=== PATIENT | female | born 1935 | race Caucasian/White ===

== ENCOUNTER 2018-03-19 14:13 | Inpatient (IN) ==
[2018-03-19 16:04] LABS: Basophils # 0.1 10*3/uL (0.0-0.2); Basophils % 0.7 % (0.0-0.8); Eosinophils # 0.2 10*3/uL (0.0-0.87); Eosinophils % 2.9 % (0.00-10.9); Hematocrit 36.1 VOL% (35.7-47.0); Hemoglobin 11.8 GM/DL (12.0-16.0); Immature Granulocytes % 0.2 %; Immature Granulocytes Absolute 0.02 #; Lymphocytes # 2.5 10*3/uL (1.4-4.0); Lymphocytes % 30.5 % (21.3-54.2); Mean Corpuscular HGB Conc 32.7 GM/DL (32-36); Mean Corpuscular Hemoglobin 30 PG (27-34); Mean Platelet Volume 10.7 FL (9.6-12.0); Monocytes # 0.8 10*3/uL (0.11-0.8); Monocytes % 9.8 % (1.7-12.7); Neutrophils # 4.6 10*3/uL (1.4-7.4); Neutrophils % 55.9 % (38.7-73.9); Platelet Count 189 T/CUMM (130-400); Red Blood Count 3.88 MC/CUMM (3.8-5.5); Red Cell Distribution Width 12.9 % (9.3-17.3); White Blood Count 8.2 T/CUMM (4-12)
[2018-03-19 16:47] LABS: Apearance,Urine CLEAR (Clear); Bilirubin,Urine Negative (Negative); Blood, Urine Negative (Negative); Glucose,Urine (UA) Negative (Negative); Ketones,Urine Negative (Negative); Mucus,Urine Occasional /LPF (Occasional); Nitrite,Urine Negative (Negative); Protein,Urine Negative; RBC,Urine <1 /HPF (0-4); Urine Color Yellow (Yellow); Urine Urobilinogen < 2.0 EU/DL (0.2-1.0)
[2018-03-19 17:00] LABS: Alanine Aminotransferase 24 U/L (13-56); Albumin 3.8 G/DL (3.4-5.0); Alkaline Phosphatase 67 U/L (45-117); Aspartate Amino Transferase 26 U/L (0-37); Bilirubin,Total < 0.39 MG/DL (0.2-1.0); Blood Urea Nitrogen 20 MG/DL (7-18); Calcium 8.7 MG/DL (8.5-10.1); Glucose 99 MG/DL (74-106); Osmolality,Calculated 281.4 MOS/KG (273-304); Sodium 140 MMOL/L (136-145); Total Protein 7.2 G/DL (6.4-8.3)
[2018-03-19] MEDS ORDERED: ACETAMINOPHEN 325 MG TABLET PO PRN (17:55)
[2018-03-19 18:26] LABS: Ammonia 10 UMOL/L (11-32)
[2018-03-19] MEDS ORDERED: MEROPENEM 1,000 MG VIAL IV ONE (18:57)
[2018-03-19] MEDS: MEROPENEM 1,000 MG in SODIUM CHLORIDE 0.9% 100 ML IV SCH (19:00)
[2018-03-19] MEDS: ATORVASTATIN 40 MG TABLET PO SCH (20:07)
[2018-03-19] MEDS ORDERED: LEVOFLOXACIN INJ 500 MG in PREMIX 1 EACH IV ONE (21:00)
[2018-03-19] MEDS: HEPARIN 5,000 UNIT/1 ML VIAL SUBCUT SCH (21:24)
[2018-03-19] MEDS: MULTIVITAMIN (OCUVITE) TABLET PO SCH (21:29)
[2018-03-19] MEDS: METHENAMINE HIPPURATE 1 GM TABLET PO SCH (21:29)
[2018-03-19] MEDS: ASCORBIC ACID 500 MG TABLET PO SCH (21:29)
[2018-03-20 05:29] LABS: Basophils # 0.1 10*3/uL (0.0-0.2); Basophils % 0.7 % (0.0-0.8); Eosinophils # 0.2 10*3/uL (0.0-0.87); Eosinophils % 3.2 % (0.00-10.9); Hematocrit 34.1 VOL% (35.7-47.0); Hemoglobin 11.1 GM/DL (12.0-16.0); Immature Granulocytes % 0.3 %; Immature Granulocytes Absolute 0.02 #; Lymphocytes # 1.7 10*3/uL (1.4-4.0); Lymphocytes % 24.5 % (21.3-54.2); Mean Corpuscular HGB Conc 32.6 GM/DL (32-36); Mean Corpuscular Hemoglobin 31 PG (27-34); Mean Corpuscular Volume 93.7 FL (87-102); Mean Platelet Volume 10.6 FL (9.6-12.0); Monocytes # 0.5 10*3/uL (0.11-0.8); Monocytes % 7.6 % (1.7-12.7); Neutrophils # 4.4 10*3/uL (1.4-7.4); Neutrophils % 63.7 % (38.7-73.9); Platelet Count 194 T/CUMM (130-400); Red Blood Count 3.64 MC/CUMM (3.8-5.5); Red Cell Distribution Width 12.9 % (9.3-17.3)
[2018-03-20 05:59] LABS: Albumin 3.2 G/DL (3.4-5.0); Bilirubin,Total 0.8 MG/DL (0.2-1.0); Calcium 8.2 MG/DL (8.5-10.1); Osmolality,Calculated 283.1 MOS/KG (273-304); Potassium 4.1 MMOL/L (3.5-5.1); Total Protein 6.3 G/DL (6.4-8.3)
[2018-03-20] MEDS: HEPARIN 5,000 UNIT/1 ML VIAL SUBCUT SCH ×3 (06:52→21:29)
[2018-03-20] MEDS: MEROPENEM 1,000 MG in SODIUM CHLORIDE 0.9% 100 ML IV SCH (06:52)
[2018-03-20] MEDS: METHENAMINE HIPPURATE 1 GM TABLET PO SCH ×2 (09:03→21:22)
[2018-03-20] MEDS: ASCORBIC ACID 500 MG TABLET PO SCH ×2 (09:04→21:22)
[2018-03-20] MEDS: ASPIRIN EC 81 MG TABLET PO SCH (09:06)
[2018-03-20] MEDS: CHOLECALCIFEROL 1,000 UNIT TABLET PO SCH (09:06)
[2018-03-20] MEDS: amLODIPine 10 MG TABLET PO SCH (09:06)
[2018-03-20] MEDS: PANTOPRAZOLE 40 MG TABLET PO SCH (09:06)
[2018-03-20] MEDS: RAMIPRIL 5 MG CAPSULE PO SCH (09:06)
[2018-03-20] MEDS: PIPERACILLIN/TAZOBACTAM 3,375 MG in SODIUM CHLORIDE 0.9% 100 ML IV SCH ×2 (10:36→18:12)
[2018-03-20] MEDS ORDERED: LEVOFLOXACIN INJ 250 MG in PREMIX 1 EACH IV SCH (21:00)
[2018-03-20] MEDS: MULTIVITAMIN (OCUVITE) TABLET PO SCH (21:22)
[2018-03-20] MEDS: ATORVASTATIN 40 MG TABLET PO SCH (21:22)
[2018-03-20] MEDS: QUEtiapine 25 MG TABLET PO SCH (21:23)
[2018-03-20] MEDS: DONEPEZIL 5 MG TABLET PO SCH (21:24)
[2018-03-21] MEDS: PIPERACILLIN/TAZOBACTAM 3,375 MG in SODIUM CHLORIDE 0.9% 100 ML IV SCH (01:59)
[2018-03-21 04:38] LABS: Basophils % 0.6 % (0.0-0.8); Eosinophils # 0.3 10*3/uL (0.0-0.87); Eosinophils % 4.4 % (0.00-10.9); Hematocrit 34.2 VOL% (35.7-47.0); Hemoglobin 11.2 GM/DL (12.0-16.0); Immature Granulocytes % 0.1 %; Immature Granulocytes Absolute 0.01 #; Lymphocytes # 2.6 10*3/uL (1.4-4.0); Lymphocytes % 37.7 % (21.3-54.2); Mean Corpuscular HGB Conc 32.7 GM/DL (32-36); Mean Corpuscular Hemoglobin 31 PG (27-34); Mean Corpuscular Volume 94.2 FL (87-102); Mean Platelet Volume 10.1 FL (9.6-12.0); Monocytes # 0.5 10*3/uL (0.11-0.8); Monocytes % 7.1 % (1.7-12.7); Neutrophils # 3.4 10*3/uL (1.4-7.4); Neutrophils % 50.1 % (38.7-73.9); Platelet Count 196 T/CUMM (130-400); Red Blood Count 3.63 MC/CUMM (3.8-5.5); Red Cell Distribution Width 12.9 % (9.3-17.3); White Blood Count 6.8 T/CUMM (4-12)
[2018-03-21 05:30] LABS: Albumin 3.1 G/DL (3.4-5.0); Bilirubin,Total 0.5 MG/DL (0.2-1.0); Calcium 8.7 MG/DL (8.5-10.1); Osmolality,Calculated 285.1 MOS/KG (273-304); Potassium 4.1 MMOL/L (3.5-5.1); Total Protein 6.2 G/DL (6.4-8.3)
[2018-03-21] MEDS: HEPARIN 5,000 UNIT/1 ML VIAL SUBCUT SCH ×3 (05:43→21:32)
[2018-03-21] MEDS: RAMIPRIL 5 MG CAPSULE PO SCH (09:28)
[2018-03-21] MEDS: ASCORBIC ACID 500 MG TABLET PO SCH ×2 (09:28→20:23)
[2018-03-21] MEDS: CHOLECALCIFEROL 1,000 UNIT TABLET PO SCH (09:28)
[2018-03-21] MEDS: METHENAMINE HIPPURATE 1 GM TABLET PO SCH ×2 (09:28→20:24)
[2018-03-21] MEDS: QUEtiapine 25 MG TABLET PO SCH ×2 (09:28→23:58)
[2018-03-21] MEDS: amLODIPine 10 MG TABLET PO SCH (09:28)
[2018-03-21] MEDS: PANTOPRAZOLE 40 MG TABLET PO SCH (09:28)
[2018-03-21] MEDS: ASPIRIN EC 81 MG TABLET PO SCH (09:28)
[2018-03-21] MEDS ORDERED: VANCOMYCIN INJ 1,500 MG in SODIUM CHLORIDE 0.9% 500 ML IV ONE (13:00)
[2018-03-21 14:09] LABS: Troponin I < 0.015 NG/ML (0.00-0.045)
[2018-03-21] MEDS: MULTIVITAMIN (OCUVITE) TABLET PO SCH (20:23)
[2018-03-21] MEDS: ATORVASTATIN 40 MG TABLET PO SCH (20:24)
[2018-03-21] MEDS ORDERED: APIXABAN 2.5 MG TABLET PO SCH (21:00)
[2018-03-21] MEDS: DONEPEZIL 5 MG TABLET PO SCH (23:58)
[2018-03-22] MEDS: HEPARIN 5,000 UNIT/1 ML VIAL SUBCUT SCH ×3 (05:27→21:00)
[2018-03-22 05:42] LABS: Basophils # 0.1 10*3/uL (0.0-0.2); Basophils % 0.6 % (0.0-0.8); Eosinophils # 0.3 10*3/uL (0.0-0.87); Eosinophils % 3.4 % (0.00-10.9); Hematocrit 37.2 VOL% (35.7-47.0); Immature Granulocytes % 0.1 %; Immature Granulocytes Absolute 0.01 #; Lymphocytes # 2.4 10*3/uL (1.4-4.0); Lymphocytes % 31.1 % (21.3-54.2); Mean Corpuscular HGB Conc 32.3 GM/DL (32-36); Mean Corpuscular Hemoglobin 31 PG (27-34); Mean Corpuscular Volume 94.9 FL (87-102); Mean Platelet Volume 10.5 FL (9.6-12.0); Monocytes # 0.5 10*3/uL (0.11-0.8); Monocytes % 6.7 % (1.7-12.7); Neutrophils # 4.5 10*3/uL (1.4-7.4); Neutrophils % 58.1 % (38.7-73.9); Platelet Count 196 T/CUMM (130-400); Red Blood Count 3.92 MC/CUMM (3.8-5.5); Red Cell Distribution Width 12.8 % (9.3-17.3); White Blood Count 7.8 T/CUMM (4-12)
[2018-03-22 06:59] LABS: Calcium 8.9 MG/DL (8.5-10.1)
[2018-03-22 07:00] LABS: Osmolality,Calculated 283.1 MOS/KG (273-304); Potassium 4.1 MMOL/L (3.5-5.1)
[2018-03-22] MEDS: CHOLECALCIFEROL 1,000 UNIT TABLET PO SCH (09:42)
[2018-03-22] MEDS: METHENAMINE HIPPURATE 1 GM TABLET PO SCH ×2 (09:42→20:58)
[2018-03-22] MEDS: ASPIRIN EC 81 MG TABLET PO SCH (09:42)
[2018-03-22] MEDS: ASCORBIC ACID 500 MG TABLET PO SCH ×2 (09:42→20:58)
[2018-03-22] MEDS: PANTOPRAZOLE 40 MG TABLET PO SCH (09:42)
[2018-03-22] MEDS: RAMIPRIL 5 MG CAPSULE PO SCH (09:44)
[2018-03-22] MEDS: QUEtiapine 25 MG TABLET PO SCH (09:51)
[2018-03-22] MEDS ORDERED: VANCOMYCIN INJ 1,250 MG in SODIUM CHLORIDE 0.9% 250 ML IV SCH (13:00)
[2018-03-22] MEDS: cefTRIAXone 2,000 MG in SYRINGE 1 EACH IV SCH (13:42)
[2018-03-22] MEDS: MULTIVITAMIN (OCUVITE) TABLET PO SCH (20:58)
[2018-03-22] MEDS: ATORVASTATIN 40 MG TABLET PO SCH (20:58)
[2018-03-23] MEDS: HEPARIN 5,000 UNIT/1 ML VIAL SUBCUT SCH ×3 (05:38→20:40)
[2018-03-23 06:16] LABS: Basophils % 0.4 % (0.0-0.8); Eosinophils # 0.3 10*3/uL (0.0-0.87); Eosinophils % 3.7 % (0.00-10.9); Hematocrit 36.3 VOL% (35.7-47.0); Hemoglobin 11.5 GM/DL (12.0-16.0); Immature Granulocytes % 0.1 %; Immature Granulocytes Absolute 0.01 #; Lymphocytes # 2.1 10*3/uL (1.4-4.0); Lymphocytes % 28.1 % (21.3-54.2); Mean Corpuscular HGB Conc 31.7 GM/DL (32-36); Mean Corpuscular Hemoglobin 30 PG (27-34); Mean Platelet Volume 10.3 FL (9.6-12.0); Monocytes # 0.5 10*3/uL (0.11-0.8); Monocytes % 6.3 % (1.7-12.7); Neutrophils # 4.7 10*3/uL (1.4-7.4); Neutrophils % 61.4 % (38.7-73.9); Platelet Count 211 T/CUMM (130-400); Red Blood Count 3.86 MC/CUMM (3.8-5.5); Red Cell Distribution Width 12.8 % (9.3-17.3); White Blood Count 7.6 T/CUMM (4-12)
[2018-03-23 06:51] LABS: Calcium 8.9 MG/DL (8.5-10.1); Potassium 3.9 MMOL/L (3.5-5.1)
[2018-03-23] MEDS: CHOLECALCIFEROL 1,000 UNIT TABLET PO SCH (10:11)
[2018-03-23] MEDS: ASCORBIC ACID 500 MG TABLET PO SCH ×2 (10:12→20:40)
[2018-03-23] MEDS: METHENAMINE HIPPURATE 1 GM TABLET PO SCH ×2 (10:12→20:40)
[2018-03-23] MEDS: PANTOPRAZOLE 40 MG TABLET PO SCH (10:12)
[2018-03-23] MEDS: ASPIRIN EC 81 MG TABLET PO SCH (10:12)
[2018-03-23] MEDS: RAMIPRIL 5 MG CAPSULE PO SCH (10:12)
[2018-03-23] MEDS: cefTRIAXone 2,000 MG in SYRINGE 1 EACH IV SCH (10:12)
[2018-03-23] MEDS: ATORVASTATIN 40 MG TABLET PO SCH (20:40)
[2018-03-23] MEDS: MULTIVITAMIN (OCUVITE) TABLET PO SCH (20:40)
[2018-03-24] MEDS: HEPARIN 5,000 UNIT/1 ML VIAL SUBCUT SCH (05:36)
[2018-03-24] MEDS: RAMIPRIL 5 MG CAPSULE PO SCH (08:59)
[2018-03-24] MEDS: METHENAMINE HIPPURATE 1 GM TABLET PO SCH (09:00)
[2018-03-24] MEDS: CHOLECALCIFEROL 1,000 UNIT TABLET PO SCH (09:00)
[2018-03-24] MEDS: PANTOPRAZOLE 40 MG TABLET PO SCH (09:00)
[2018-03-24] MEDS: ASPIRIN EC 81 MG TABLET PO SCH (09:00)
[2018-03-24] MEDS ORDERED: APIXABAN 2.5 MG TABLET PO SCH (09:00)
[2018-03-24] MEDS: ASCORBIC ACID 500 MG TABLET PO SCH (09:00)
[2018-03-24] MEDS: cefTRIAXone 2,000 MG in SYRINGE 1 EACH IV SCH (09:31)
[2018-03-24 11:53] VITALS: BP 122/65
[2018-03-24] MEDS ORDERED: HEPARIN 5,000 UNIT/1 ML VIAL ONE (15:30)
[2018-03-24] MEDS ORDERED: FUROSEMIDE 20 MG/2 ML VIAL ONE (15:31)
== END 2018-03-24 13:27 | disposition swing bed (61) | DRG 871 ==
LOC: N.ED 14:13 → SUATTDRO 17:26 → N.EDINP 17:26 → N.5E 19:11 → N.2E 03-22 07:08
PROVIDERS: ADMIT Internal Medicine; ATTEND Family Medicine

== ENCOUNTER 2018-11-15 17:55 | Inpatient (IN) ==
[2018-11-15 20:05] LABS: Basophils % 0.5 % (0.0-0.8); Eosinophils # 0.2 10*3/uL (0.0-0.87); Eosinophils % 3.3 % (0.00-10.9); Hematocrit 37.2 VOL% (35.7-47.0); Hemoglobin 11.9 GM/DL (12.0-16.0); Immature Granulocytes % 0.3 %; Immature Granulocytes Absolute 0.02 #; Lymphocytes # 2.1 10*3/uL (1.4-4.0); Mean Corpuscular Volume 95.9 FL (87-102); Mean Platelet Volume 13.6 FL (9.6-12.0); Monocytes % 6.5 % (1.7-12.7); Neutrophils % 55.4 % (38.7-73.9); Red Blood Count 3.88 MC/CUMM (3.8-5.5); Red Cell Distribution Width 13.3 % (9.3-17.3); White Blood Count 6.1 T/CUMM (4-12)
[2018-11-15 20:12] LABS: Platelet Count 38 T/CUMM (130-400)
[2018-11-15 21:24] LABS: Basophils % 0.5 % (0.0-0.8); Eosinophils # 0.4 10*3/uL (0.0-0.87); Eosinophils % 4.1 % (0.00-10.9); Hematocrit 37.7 VOL% (35.7-47.0); Hemoglobin 12.2 GM/DL (12.0-16.0); Immature Granulocytes % 0.6 %; Immature Granulocytes Absolute 0.05 #; Lymphocytes # 2.2 10*3/uL (1.4-4.0); Lymphocytes % 25.4 % (21.3-54.2); Mean Corpuscular HGB Conc 32.4 GM/DL (32-36); Mean Corpuscular Volume 94.5 FL (87-102); Mean Platelet Volume 10.6 FL (9.6-12.0); Monocytes % 7.2 % (1.7-12.7); Neutrophils % 62.2 % (38.7-73.9); Platelet Count 248 T/CUMM (130-400); Red Blood Count 3.99 MC/CUMM (3.8-5.5); Red Cell Distribution Width 13.4 % (9.3-17.3); White Blood Count 8.6 T/CUMM (4-12)
[2018-11-15 21:47] LABS: Apearance,Urine CLOUDY (Clear); Bacteria,Urine Occasional /HPF (Few); Bilirubin,Urine Negative (Negative); Blood, Urine Negative (Negative); Glucose,Urine (UA) Negative (Negative); Ketones,Urine Negative (Negative); Mucus,Urine Moderate /LPF (Occasional); Nitrite,Urine Negative (Negative); Protein,Urine 30 MG/DL; Urine Color Yellow (Yellow); Urine Specific Gravity 1.014 (1.001-1.035); Urine Urobilinogen < 2.0 EU/DL (0.2-1.0); WBC,Urine 107 /HPF (0-6)
[2018-11-15 21:54] LABS: Alanine Aminotransferase 25 U/L (13-56); Albumin 3.4 G/DL (3.4-5.0); Alkaline Phosphatase 77 U/L (45-117); Aspartate Amino Transferase 12 U/L (0-37); Blood Urea Nitrogen 24 MG/DL (7-18); Calcium 9.4 MG/DL (8.5-10.1); Glucose 85 MG/DL (74-106); Osmolality,Calculated 288.8 MOS/KG (273-304); Total Protein 6.6 G/DL (6.4-8.3); Troponin I < 0.015 NG/ML (0.00-0.045)
[2018-11-15] MEDS ORDERED: ACETAMINOPHEN 325 MG TABLET PO PRN (23:54)
[2018-11-15] MEDS ORDERED: LACTULOSE 20 GM/30 ML UDCUP PO PRN (23:54)
[2018-11-15] MEDS ORDERED: ONDANSETRON 4 MG/2 ML VIAL IV PRN (23:54)
[2018-11-16 00:16] LABS: Barbiturates Screen,Urine Negative (Negative); Benzodiazepines Screen,Urine Negative (Negative); Cannabinoid Screen,Urine Negative (Negative); Opiate Screen,Urine Negative (Negative); Phencyclidine Screen,Urine Negative (Negative)
[2018-11-16] MEDS: SODIUM CHLORIDE 0.9% 1,000 ML IV SCH ×2 (01:02→19:44)
[2018-11-16] MEDS: MORPHINE 4 MG/1 ML VIAL IV PRN ×5 (01:08→22:25)
[2018-11-16 04:49] LABS: Basophils % 0.5 % (0.0-0.8); Eosinophils # 0.4 10*3/uL (0.0-0.87); Eosinophils % 4.5 % (0.00-10.9); Hematocrit 34.1 VOL% (35.7-47.0); Immature Granulocytes % 0.3 %; Immature Granulocytes Absolute 0.02 #; Lymphocytes # 2.1 10*3/uL (1.4-4.0); Lymphocytes % 25.9 % (21.3-54.2); Mean Corpuscular HGB Conc 32.3 GM/DL (32-36); Mean Platelet Volume 11.7 FL (9.6-12.0); Monocytes % 6.9 % (1.7-12.7); Neutrophils % 61.9 % (38.7-73.9); Platelet Count 233 T/CUMM (130-400); Red Blood Count 3.59 MC/CUMM (3.8-5.5); Red Cell Distribution Width 13.3 % (9.3-17.3); White Blood Count 7.9 T/CUMM (4-12)
[2018-11-16 05:17] LABS: Bilirubin,Total 0.7 MG/DL (0.2-1.0); Calcium 9.4 MG/DL (8.5-10.1); Osmolality,Calculated 288.8 MOS/KG (273-304); Total Protein 6.1 G/DL (6.4-8.3)
[2018-11-16] MEDS ORDERED: PANTOPRAZOLE 40 MG VIAL IV SCH (09:00)
[2018-11-16] MEDS: levETIRAcetam LIQUID 100 MG/ML 30 ML/BOTTLE PO SCH ×2 (09:33→17:04)
[2018-11-16] MEDS: DOCUSATE SODIUM 100 MG CAPSULE PO SCH ×3 (09:33→21:27)
[2018-11-16] MEDS: ACETAMINOPHEN 325 MG TABLET PO SCH ×2 (09:33→21:25)
[2018-11-16] MEDS: RAMIPRIL 5 MG CAPSULE PEG SCH (09:33)
[2018-11-16] MEDS: CHOLECALCIFEROL 1,000 UNIT TABLET PEG SCH ×3 (09:33→21:27)
[2018-11-16] MEDS: PANTOPRAZOLE 40 MG TABLET PO SCH (09:34)
[2018-11-16] MEDS: ASPIRIN EC 81 MG TABLET PO SCH (09:34)
[2018-11-16] MEDS ORDERED: GLUCAGON 1 MG VIAL IM PRN (09:39)
[2018-11-16] MEDS ORDERED: DEXTROSE 50% 25 GM/50 ML VIAL IV PRN (09:39)
[2018-11-16] MEDS: INSULIN REGULAR 100 UNIT/ML SUBCUT SCH ×3 (11:38→23:12)
[2018-11-16] MEDS: VANCOMYCIN INJ 1,250 MG in SODIUM CHLORIDE 0.9% 250 ML IV SCH (17:04)
[2018-11-16] MEDS: ASCORBIC ACID 500 MG TABLET PEG SCH (21:25)
[2018-11-17] MEDS: MORPHINE 4 MG/1 ML VIAL IV PRN ×4 (02:49→22:01)
[2018-11-17 05:08] LABS: Calcium 8.6 MG/DL (8.5-10.1); Osmolality,Calculated 286.1 MOS/KG (273-304); Prealbumin 22.9 MG/DL (20-40)
[2018-11-17] MEDS: VANCOMYCIN INJ 1,250 MG in SODIUM CHLORIDE 0.9% 250 ML IV SCH ×2 (05:20→17:08)
[2018-11-17] MEDS: INSULIN REGULAR 100 UNIT/ML SUBCUT SCH ×3 (05:34→17:04)
[2018-11-17] MEDS: ACETAMINOPHEN 325 MG TABLET PO SCH ×2 (08:32→23:10)
[2018-11-17] MEDS: DOCUSATE SODIUM 100 MG CAPSULE PO SCH ×2 (08:32→23:11)
[2018-11-17] MEDS: ASPIRIN EC 81 MG TABLET PO SCH (08:32)
[2018-11-17] MEDS: CHOLECALCIFEROL 1,000 UNIT TABLET PEG SCH ×2 (08:32→23:10)
[2018-11-17] MEDS: RAMIPRIL 5 MG CAPSULE PEG SCH (08:33)
[2018-11-17] MEDS: PANTOPRAZOLE 40 MG TABLET PO SCH (08:35)
[2018-11-17] MEDS: levETIRAcetam LIQUID 100 MG/ML 30 ML/BOTTLE PO SCH ×2 (08:35→17:08)
[2018-11-17] MEDS ORDERED: ZIPRASIDONE 20 MG/1 ML VIAL IM ONE (09:38)
[2018-11-17] MEDS ORDERED: TUBERCULIN SKIN TEST 0.1 ML SYRINGE INTRADERM ONE (09:55)
[2018-11-17] MEDS: SODIUM CHLORIDE 0.9% 1,000 ML IV SCH (13:08)
[2018-11-17] MEDS: ASCORBIC ACID 500 MG TABLET PEG SCH (23:10)
[2018-11-18] MEDS: INSULIN REGULAR 100 UNIT/ML SUBCUT SCH ×3 (00:45→13:27)
[2018-11-18] MEDS: SODIUM CHLORIDE 0.9% 1,000 ML IV SCH (07:01)
[2018-11-18] MEDS: VANCOMYCIN INJ 1,250 MG in SODIUM CHLORIDE 0.9% 250 ML IV SCH (07:14)
[2018-11-18] MEDS: MORPHINE 4 MG/1 ML VIAL IV PRN ×2 (08:50→15:09)
[2018-11-18] MEDS: DOCUSATE SODIUM 100 MG CAPSULE PO SCH (08:52)
[2018-11-18] MEDS: ACETAMINOPHEN 325 MG TABLET PO SCH ×2 (08:52→23:03)
[2018-11-18] MEDS: CHOLECALCIFEROL 1,000 UNIT TABLET PEG SCH (08:52)
[2018-11-18] MEDS: PANTOPRAZOLE 40 MG TABLET PO SCH (08:52)
[2018-11-18] MEDS: levETIRAcetam LIQUID 100 MG/ML 30 ML/BOTTLE PO SCH ×2 (08:52→17:32)
[2018-11-18] MEDS: RAMIPRIL 5 MG CAPSULE PEG SCH (08:52)
[2018-11-18] MEDS: ASPIRIN EC 81 MG TABLET PO SCH (08:52)
[2018-11-18] MEDS: ZIPRASIDONE 20 MG/1 ML VIAL IM PRN (13:22)
[2018-11-19] MEDS: LORazepam 2 MG/1 ML VIAL IV PRN ×2 (05:16→19:20)
[2018-11-19] MEDS: PANTOPRAZOLE 40 MG TABLET PO SCH (08:29)
[2018-11-19] MEDS: levETIRAcetam LIQUID 100 MG/ML 30 ML/BOTTLE PO SCH ×2 (08:29→18:37)
[2018-11-19] MEDS: ACETAMINOPHEN 325 MG TABLET PO SCH ×2 (08:29→21:13)
[2018-11-19] MEDS: MORPHINE 4 MG/1 ML VIAL IV PRN ×2 (18:35→22:40)
[2018-11-20] MEDS: LORazepam 2 MG/1 ML VIAL IV PRN ×3 (00:12→11:37)
[2018-11-20] MEDS: MORPHINE 4 MG/1 ML VIAL IV PRN ×3 (03:02→13:28)
[2018-11-20] MEDS: ZIPRASIDONE 20 MG/1 ML VIAL IM PRN (05:46)
[2018-11-20] MEDS: PANTOPRAZOLE 40 MG TABLET PO SCH (10:02)
[2018-11-20] MEDS: levETIRAcetam LIQUID 100 MG/ML 30 ML/BOTTLE PO SCH ×2 (10:02→16:47)
[2018-11-20] MEDS: ACETAMINOPHEN 325 MG TABLET PO SCH (10:02)
[2018-11-20 11:19] VITALS: BP 157/83
== END 2018-11-20 17:11 | disposition hospice, inpatient (51) | DRG 56 ==
LOC: EDBD → EDUNIT# → N.ED 17:55 → N.EDINP 22:22 → N.5E 22:50
PROVIDERS: ADMIT Family Medicine; ATTEND Family Medicine

== ENCOUNTER 2018-11-20 17:14 | Inpatient (IN) ==
[2018-11-20] MEDS ORDERED: LORazepam 2 MG/1 ML VIAL IV PRN (17:54)
[2018-11-20] MEDS: MORPHINE 4 MG/1 ML VIAL IV PRN (18:49)
[2018-11-21] MEDS: MORPHINE 4 MG/1 ML VIAL IV PRN ×2 (03:21→10:28)
[2018-11-21 08:35] VITALS: BP 123/54
== END 2018-11-21 14:30 | disposition hospice, inpatient (51) | DRG 951 ==
LOC: N.4E 17:14
PROVIDERS: ADMIT Internal Medicine; ATTEND Internal Medicine